=== PATIENT | male | born 1970 | race Caucasian/White ===

== ENCOUNTER 2017-03-07 08:02 | Day surgery (SDC) | payer OTHER ==
--- NOTE | 2017-03-02 08:22 | PCM.ANEPRE ---
Anesthesia Pre-Op Review Reason for Review: SURGEON'S RFEQUEST-"HX OF A. FIB" Anesthesia Recommendations: Proceed with Procedure Additional Comments 46 y/o male scheduled for left ACL reconstruction with partial medial meniscectomy. H/O Paroxysmal Atrial Fibrillation s/p cardiology consult on 2006. Per cardiology was optimized. Echo 01/2007 showed EF 60-65%. Rate controlled on metoprolol. METS > 4. According to the 2014 ACC/AHA on Perioperative Cardiovascular Surgery the patient may proceed with surgery as scheduled pending evaluation by DOS anesthesiologist. Karlos Rios MD Mar 02, 2017 08:22
[2017-03-07] VITALS (8 sets, daily range): BP systolic 124–140; BP diastolic 76–94; PULSE 69–82; RESP 13–17; O2SAT 96–99
[~2017-03-07] VITALS: Ht 177.8 cm; Wt 106.2 kg
[2017-03-07] MEDS: Lactated Ringer's 1,000 ML IV SCH ×2 (05:36→09:53)
[~2017-03-07 08:02] MED LIST: CeFAZolin Inj 2 GM in IV Premix 1 EACH IV SCH
[2017-03-07] MEDS ORDERED: fentaNYL-PF 50 mCg/mL 2 mL Inj ONE (08:03)
[2017-03-07] MEDS ORDERED: Rocuronium 10 mg/mL 5 mL Inj ONE (08:03)
[2017-03-07] MEDS ORDERED: Propofol 10,000 mCg/mL 20 mL Inj ONE (08:03)
[2017-03-07] MEDS ORDERED: Ondansetron 2 mg/mL 2 mL Inj ONE (08:03)
[2017-03-07] MEDS ORDERED: Dexamethasone 4 mg/mL Inj ONE (08:03)
[2017-03-07] MEDS ORDERED: MetoCLOpramide 5 mg/mL 2 mL Inj ONE (08:03)
[2017-03-07] MEDS ORDERED: HYDROcodone-APAP 5-325 mg Tablet PO PRN (09:40)
[2017-03-07] MEDS ORDERED: Ketorolac 15 mg/mL Inj IVPUSH ONE (09:40)
[2017-03-07] MEDS ORDERED: Ropivacaine-PF 0.5% 30 mL Inj INFILTRATE ONE (10:23)
[2017-03-07] MEDS ORDERED: Bacitracin 50,000 unit Inj IRRIGATION ONE (10:25)
[2017-03-07] MEDS ORDERED: Lactated Ringer's 500 ML IV PRN (10:43)
[2017-03-07] MEDS ORDERED: Lactated Ringer's 1,000 ML IV SCH (10:43)
[2017-03-07] MEDS ORDERED: Labetalol 5 mg/mL 4 mL Inj IV PRN (10:45)
[2017-03-07] MEDS ORDERED: MetoCLOpramide 5 mg/mL 2 mL Inj IVPUSH PRN (10:45)
[2017-03-07] MEDS ORDERED: HYDROmorphone 1 mg/mL Inj IVPUSH PRN (10:45)
[2017-03-07] MEDS ORDERED: fentaNYL-PF 50 mCg/mL 2 mL Inj IVPUSH PRN (10:45)
[2017-03-07] MEDS ORDERED: EPHEDrine Sulfate 50 mg/mL Inj IVPUSH PRN (10:45)
[2017-03-07] MEDS ORDERED: Atropine 0.4 mg/mL Inj IVPUSH PRN (10:45)
[2017-03-07] MEDS ORDERED: Phenylephrine 10,000 mCg/mL Inj IVPUSH PRN (10:45)
[2017-03-07] MEDS ORDERED: Ondansetron 2 mg/mL 2 mL Inj IVPUSH PRN (10:45)
--- NOTE | 2017-03-07 10:47 | PCM.HPANE ---
Patient Data Surgeon Admitting Provider: Attending Provider:Larry Knott MD Primary Care Physician:Fernandez Ferrer DO Other Provider:Selam Schraderingham Anesthesia Reason for Visit Left Acl Tear Ht/WT & BMI Height (Feet): 5 Height (Inches): 10 Weight (Kilograms): 108.908 Body Mass Index 34.00 Allergies Coded Allergies: No Known Allergies (Unverified , 03/01/17) Past Anesthesia History Anesthesia History: Denies:: Abnormal Airway, Anesthesia Reactions, Difficult Intubation, Fam Anesthesia Reaction, Fam Malignant Hypertherm, Malignant Hyperthermia Diabetes History Hx Diabetes?: No MRSA MRSA: No Medications Blood Thinner: Aspirin Home Meds Incl Beta Misael: No Discontinued Reported Medications Metoprolol Tartrate 25 Mg [id number] Mg PO BID 30 Days Ref 0 03/01/17 Ibuprofen 200 Mg [id number] Mg PO QID PRN For Pain Ref 0 03/01/17 Aspirin 81 Mg [id number] Mg PO DAILY Ref 0 03/01/17 History History of ENT Problems?: No HEENT History: Denies:: Abnormal Airway Cataracts Difficult Intubation Dysphagia Glaucoma Hearing Problem Sinus Problem TMJ Denture Type: None Teeth Condition: Within Normal Limits Hx of Heart Problems?: Yes Cardiovascular History: Positive for:: Atrial Fibrillation (HX OF 2006) Hypertension Denies:: AICD Abdominal Aortic Aneurism Cardiac Surgery Chest Pain Congestive Heart Failure Coronary Artery Disease Edema Heart Murmur (ECHO 01/2007 EF 60-65%) Irregular Heartbeat Pacemaker Peripheral Vascular Rheumatic Fever Thrombophlebitis Valvular Heart Disease Hx of Respiratory Problem?: No Respiratory History: Denies:: Asthma COPD Chest Surgery Cough Dyspnea Emphysema Hemoptysis Oxygen Administration Pneumonia Pulmonary Embolism Tuberculosis Use of C-PAP Machine Use of Inhalers / NEBS Hx Neurologic Problems?: No Neurological History: Denies:: Alzheimer's Disease CVA Dementia Dizziness Headaches Multiple Sclerosis Parkinson's Disease Peripheral Neuropathy Seizures TIA Hx of GI Problems?: No Gastrointestinal History: Denies:: Cirrhosis Diverticulitis Gall Bladder Disease Gastroesphageal Reflux Gastrointestinal Bleeding Heartburn Hepatitis Hiatal Hernia Liver Disease Rectal Bleeding Hx of Problems?: No Genitourinary History: Denies:: HX of Hemodialysis Kidney Stones Urinary Tract Infection HX of Peritoneal Dialysis: No Male Hx: Denies:: Prostate Problems Scrotal Mass Testicular Surgery Skin History: Denies:: History Skin Disorders? Pressure Ulcers Hx Musculoskeletal Problems?: Yes Musculoskeletal History: Positive for:: Musculoskeletal Trauma (S/P RT ACL RECONSTRUCTION LT ACL & MENISCAL TEAR=CURRENT PROBLEM) Denies:: Back Injury Degenerative Joint Fibromyalgia Joint Replacement Myasthenia Gravis Osteoarthritis Rheumatoid Arthritis Systemic Lupus Hx of Psycho/Social Problems?: No Psycho Social History: Denies:: Anxiety Bipolar Disorder Hx Depression Suicide Attempt Hx Surgeries?: Yes (RT ACL RECONSTRUCTION) Hx Any Other Health Problems?: Yes Other History: Positive for:: Thyroid Disease (HX B/L NODULES-SURVEILLANCE RECOMMENDED) Denies:: Cancer Endocrine Disease Hospitalization History Blood Transfusions: Denies:: Accept Blood Products? Blood Transfuse Reaction Blood Transfusions Hx Diabetes: No Hx Alcohol Use: NoHx Substance Use: NoHave You Smoked inLast 12 mo: No Stop/Bang S-Snoring: Do You Snore Loudly: No T-Tired: feel tired, fatigued: No O-Obsered: Observed not breath: No P-Blood Pressure: treated: Yes B- Body Mass Index > 35 kg/m2: No A- Age over 50: No N- Neck Large Circumference: Yes G- Gender Male: Yes GAURI Total Score: 3 Risk Assessment Category Category 1A: Patient has history of documented sleep apnea, and HAS NOT received any narcotic, sedative or anesthesia administration during this stay. Category 1B: Patient has history of documented sleep apnea, and HAS received any narcotic , sedative or anesthesia administration during this stay Category 2: Patient has SUSPECTED Obstructive Sleep Apnea, and HAS received any narcotic , sedative or anesthesia administration during this stay. Category 3: Patient has SUSPECTED Obstructive Sleep Apnea and HAS NOT received narcotic, sedative or anesthesia administration during this stay. Category 4: Outpatient in Procedural Areas with known sleep apnea or who screen positive for High Risk via the STOP/BANG questionnaire. Exam Exam Vital Signs Vital Signs Date Time Temp Pulse Resp B/P Pulse Ox O2 Delivery O2 Flow Rate FiO2 03/07/17 08:34 36.1 70 16 140/80 98 Room Air General Appearance: Alert, Oriented X3, Cooperative, No Acute Distress HEENT/AIRWAY: MP 2, Neck Movement (FROM), Mouth Opening (3 FBMO) Lungs: Clear to Auscultation, Normal Air Movement Heart: Exam Unremarkable, Regular Rate/Rhythm, No Murmurs/Rubs/Gallops Meds/Labs/Diagnostics Admission Meds Current Medications Lactated Ringer's (Lr) 1,000 ml @ 120 mls/hr [id number] IV Last administered on t 05:36; Start 03/07/17 at 05:00; Stop 03/07/17 at 13:19 Plan Impression Patient chart reviewed, patient interviewed and anesthestic plan with risks, benefits, and alternatives discussed, and informed consent obtained. NPO per Anesth. Guidelines: Yes ASA Physical Status: ASA2 Mod Systemic Disease Anesthetic Plan: GA, Regional Block (Left adductor canal block - performed by Dr. Kirk) Bene/Risks/Altern/Consents: Yes HP Complete Prior to Induction: Yes Karlos Rios MD Mar 07, 2017 08:59
--- NOTE | 2017-03-07 11:27 | PCM.ORTHOP ---
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 Without the qualified radiology practitioner assistant being present, it would have extended the operative procedure and made the procedure technically more difficult to perform. INDICATIONS: The patient is Julian Hughes who is a 46-year-old male patient with a prolonged history of left knee giving way. An abductor canal block was performed. The patient has had continued episodes of instability. The patient has restored their range of motion and is now brought to the operating room for ACL reconstruction, possible partial medial and lateral meniscectomy versus medial and lateral meniscal repair, chondroplasty and debridement. The risks , benefits, and alternatives of surgery were discussed with the patient. The risks included but were not limited to infection, bleeding, damage to vessels and nerves, loss of motion, continued pain, re-tear of the meniscus, deep venous thrombosis, and complications due to anesthesia including nerve injury, myocardial infarction, stroke, , etc. The patient stated understanding of the nature of the surgical procedure and gave written and verbal consent to proceed. PROCEDURE: The patient was brought to the operating room and placed supine on the operating room table. General anesthesia was induced and a fascia iliacus block was placed. The left lower extremity was examined under anesthesia. Range of motion was 0 degrees of hyperextension to 135 degrees of flexion. There was no varus or valgus or posterolateral instability. The patient had no instability to varus or valgus stress at 0 or 30 degrees. The patient had a 2+ Juan and drawer with a positive pivot shift. The left lower extremity was then prepped and draped in the usual fashion. A tourniquet was placed proximally on the thigh over a bias stockinette. A standard anterolateral parapatellar stab wound was created. The knee joint was entered with a blunt-tipped obturator, followed by the 30-degree video arthroscope. An anteromedial portal was established under arthroscopic control. A routine arthroscopic survey was performed. The suprapatellar pouch was unremarkable. The undersurface of the patella showed grade 2/3 chondral malacia which was debrided down to shaver. The patella appeared to track centrally within the trochlear groove. The medial and lateral gutters were inspected and there was no loose body seen. There were small non-engaging hypertrophied plica. The popliteal hiatus was entered and was unremarkable. The lateral compartment was entered. The articular surfaces of the lateral femoral condyle was largely well maintained. There was no chondromalacia adjacent to the notch. There was grade 2/3 chondromalacia along the central aspect of the weight bearing lateral tibial plateau which was debrided with the shaver. The lateral meniscus was intact and stable to probing including the posterior horn and root. The intercondylar notch was visualized. The anterior cruciate ligament was torn from it's femoral origin. There was an empty lateral wall. Posteromedially there was no loose body seen. The posterior cruciate ligament was visualized and appeared intact. Moderate synovitis was noted anteriorly in the medial and lateral compartment and debrided with a shaver. The medial compartment was entered. The articular surfaces of the medial femoral condyle and medial tibial plateau were visualized. There was no chondromalacia noted on the medial femoral condyle, and grade 2/3 chondromalacia noted on the medial tibial plateau which was debrided with the shaver. The medial meniscus was visualized and appeared intact and was stable to probing. Moderate synovitis was noted anteriorly in the medial and lateral compartment and debrided with a shaver. Attention was turned to reconstruction of the anterior cruciate ligament. Following exsanguination with an Esmarch bandage the tourniquet was inflated to 250 mm of mercury. Using a motorized shaver a notchplasty was performed, exposing the lateral wall and roof of the notch, identifying the wjis-lug-owe position. The stump of the anterior cruciate ligament was debrided. An Arthrex guide was placed intra-articularly between the tibial spines in line with the anterior horn of the lateral meniscus. A Josefina wire was then inserted into the knee through a 2 cm incision made over the proximal medial tibia. The incision was deepened through the subcutaneous tissue with subperiosteal dissection achieved. Bleeding points were coagulated with the Bovie electrocautery. A fresh frozen tibialis allograft was opened and prepared at the back table, accommodating a 9.5 mm graft on the femoral side and 9 mm graft on the tibial side. Tibial drilling was then carried out first with a 5 mm followed by a 9 mm cylindrical reamer with the guide set at 55 degrees. The Beath pin was drilled out the femoral cortex and skin. The femoral tunnel was then created,with an Arthrex flipcutter. Depth-gauging confirmed a tunnel length of 40 mm. An Arthrex EndoButton was selected. The graft was inserted intra-articularly and the EndoButton was deployed. The graft was cycled for 17 cycles with 25 pounds of force to pre-load the graft. Tibial fixation was carried out using a 8-10 PEEK Intra-Fix in 10 degrees of flexion with a posterior drawer. At the completion of surgery the patient had a firm stable Juan. The patient had a 0 firm Juan and a negative pivot shift. There was no evidence for any roof or lateral wall impingement. The tourniquet was deflated. The knee was irrigated with two liters of lactated Ringer's solution. Excess fluid was drained. The tibial wounds were then copiously irrigated with bacitracin solution and closed in layers with #0, #2-0 and #3-0 Vicryl. The skin was reapproximated with #4- 0 Monocryl. The knee was injected with 20 cc of 0.5% plain ropivacaine and 4 mg of Duramorph. A dry sterile dressing was applied, followed by a bulky bandage and SADIE stocking. A postoperative TROM brace was applied locked in full extension. The patient was awakened in the Operating Room and transported to the Recovery Room in satisfactory condition. The patient appeared to tolerate the procedure well. At the completion of surgery the patient had soft compartments, palpable pulses, and brisk capillary refill. There were no complications noted. Please keep dressing clean dry and intact. Do not remove dressing until follow- up in clinic. If the dressing become soaked, you may remove the outer gauze and placed Band-Aids on the wounds. You may weight-bear as tolerated with the brace on at all times. Do Not Bend Your Knee. You may place a pillow under your heel and NOT your knee. You will follow up in clinic in 10-14 days for suture removal, and placement of new Steri-Strips. You will follow-up with me in clinic, and we will start physical therapy. You will follow-up with me every 6 weeks while you progress in your rehab and will be released once cleared by PT around 9-12 months. Please see me prior to full release. Please keep the affected extremity elevated when possible. Please take aspirin as instructed if prescribed. You will take antibiotics 4 times daily for 3 days. You may use ice and/or heat as needed for comfort. (preferably ice during the first 48-72 hours)Please feel free to call with any further questions, comments , and/or concerns. Grafts, Implants: Implants-See Implant Record Complications There were no periprocedural complications identified. Condition Stable Anesthetic Administered: GA Catheters: None Output, Estimated Blood Loss: 5 Blood Admin during surgery: No Surgical Cast or Splint: Knee Immobilizer Surgical Specimen Removed: No Specimen sent to Pathology: No copies to: Larry Knott MD, Christopher L MD Mar 07, 2017 11:27
--- NOTE | 2017-03-07 12:17 | PCM.ANEP1 ---
Post Anesthesia PACU Phase 1 Assessment Vital Signs Vital Signs Date Time Temp Pulse Resp B/P Pulse Ox O2 Delivery O2 Flow Rate FiO2 03/07/17 12:16 36.6 72 16 127/78 97 Room Air 03/07/17 12:01 74 16 132/84 96 Room Air 03/07/17 11:50 70 14 124/81 96 Room Air 03/07/17 11:35 69 13 129/81 96 Room Air 03/07/17 11:30 82 17 125/76 98 Simple Mask 10 03/07/17 11:25 81 16 139/85 99 Simple Mask 10 03/07/17 11:20 37.0 80 17 140/94 99 Simple Mask 10 03/07/17 08:34 36.1 70 16 140/80 98 Room Air Anesthetic Administered: GA Level of Alertness: Awake, talking VALDOVINOS's with Equal Strength: Yes Pain: No Nausea or Vomiting: No CV Function & Hydration Stable: No Airway Device: Oxygen Delivery: Room Air Lungs: Clear to Auscultation, Normal Air Movement Dermatome Level: Full Sensation (except for distribution of nerve block) PACU Phase 2 Assessment Complications: No Follow up Care: N/A Patient Instructions Provided: N/A Karlos Rios MD Mar 07, 2017 12:17
== END 2017-03-07 23:59 | disposition home or self-care (01) ==
LOC: SAS 08:02
PROVIDERS: ATTEND Orthopaedic Surgery
DX: S83.512A Sprain of anterior cruciate ligament of left knee, initial encounter (principal); S83.412A Sprain of medial collateral ligament of left knee, initial encounter; W11.XXXA Fall on and from ladder, initial encounter; Y93.89 Activity, other specified; Y92.9 Unspecified place or not applicable; M22.42 Chondromalacia patellae, left knee; M67.52 Plica syndrome, left knee; M65.862 Other synovitis and tenosynovitis, left lower leg; I48.0 Paroxysmal atrial fibrillation; Z79.82 Long term (current) use of aspirin
CPT/HCPCS: 29888; 76942; C1713; C1762; J0690; J2270; J2795; J7120